=== PATIENT | male | born 1955 | race Caucasian/White ===

== ENCOUNTER 2017-03-06 15:38 | Observation (INO) | payer OTHER ==
--- NOTE | 2017-03-06 16:25 | EDPHY ---
H & P Stated Complaint: forgetfullness this am 9am on clinical trial for CLL Time Seen by Provider: 03/06/17 15:55 HPI/ROS: Chief Complaint: Altered mental status, speech changes HPI: 61-year-old male with a history of CLL who is currently on experimental medication that started in August of this year. Woke up this morning and seemed confused. This is not usual for his confusion is persisted to the day. He went to his son's apartment. He is having difficulty remembering events from this morning. He also had some difficulty word finding when conversing with his children this morning. No focal weakness. Does not have a history of similar episodes in the past. Has otherwise been in his normal state of health. He does take daily acyclovir and Bactrim for prophylaxis. No urinary urgency or frequency. No nausea or vomiting. No falls or head injury. He drinks rare alcohol and uses occasional marijuana but has not done either for several days. Family states he also has had very labile emotions today going from laughing to crying. ROS: 10 point Review of Systems is negative except as noted in the HPI. PMH: CLL, coronary artery disease status post CABG in 2011 Medications: Metoprolol, ramipril, Crestor, experimental [id number], experimental ibutoximab, acyclovir, Bactrim DS Social History: No smoking, no alcohol, no recreational drug use Family History: non-contributory Physical Exam: Gen: Awake, Alert, No Distress HEENT: Nose: no rhinorrhea Eyes: PERRLA, EOMI Mouth: Moist mucosa Neck: Supple, no JVD Chest: nontender, lungs clear to auscultation Heart: S1, S2 normal, no murmur Abd: Soft, non-tender, no guarding Back: no CVA tenderness, no midline tenderness Ext: no edema, non-tender Skin: no rash Neuro: CN II-XII intact, Sensation grossly intact, Strength 5/5 in bilateral upper and lower extremities - Personal History Current Tetanus/Diphtheria Vaccine: Yes - Medical/Surgical History Hx Asthma: No Hx Chronic Respiratory Disease: No Hx Diabetes: No Hx Cardiac Disease: No Hx Renal Disease: No Hx Cirrhosis: No Hx Alcoholism: No Hx HIV/AIDS: No Hx Splenectomy or Spleen Trauma: No Other PMH: CLL cardiac bypass - Social History Smoking Status: Never smoked Constitutional: Initial Vital Signs Temperature (C) 36.9 C 03/06/17 15:48 Heart Rate 76 03/06/17 15:48 Respiratory Rate 16 03/06/17 15:48 Blood Pressure 151/104 H 03/06/17 15:48 O2 Sat (%) 94 03/06/17 15:48 O2 Delivery Mode Room Air Allergies/Adverse Reactions: No Known Allergies Allergy (Unverified 03/06/17 15:43) Home Medications: Medication Instructions Recorded Acyclovir 03/06/17 Alfuzosin HCl 03/06/17 Aspirin 81mg (*) 03/06/17 Bactrim DS 03/06/17 Crestor 03/06/17 ECOTRIN 03/06/17 Metoprolol Succinate 03/06/17 Ramipril 03/06/17 [id number] 03/06/17 Medical Decision Making - Diagnostics EKG Interpretation: ECG time 5:10 p.m., sinus rhythm with a rate of 69, some right bundle branch and left anterior fascicular block. LVH. No acute ST or T-wave changes. Imaging Results: Imaging Impressions Head CT 03/06/17 16:16 Impression: 1. No acute intracranial process. 2. Minimal atrophy. Findings discussed with Emergency Department physician, Anthony Rosales MD at 03/06/2017 17:13. Imaging: Discussed imaging studies w/ call specialist Radiologist ED Course/Re-evaluation: CT scan is negative for acute process. Blood work is entirely normal. Patient is still mildly confused. Given his CLL and experimental medications he is on a think he needs to be admitted for further care. I have discussed with Dr. Emmanuel, hospitalist. Will admit to his service for further evaluation. - Data Points Laboratory Results: Laboratory Results 03/06/17 16:35 03/06/17 16:35 03/06/17 03/06/17 03/06/17 16:35 16:35 16:35 WBC 7.69 10^3/uL 10^3/uL (3.80-9.50) RBC 4.78 10^6/uL 10^6/uL (4.40-6.38) Hgb 15.0 g/dL g/dL (13.7-17.5) Hct 43.8 % % (40.0-51.0) MCV 91.6 fL fL (81.5-99.8) MCH 31.4 pg pg (27.9-34.1) MCHC 34.2 g/dL g/dL (32.4-36.7) RDW 14.1 % % (11.5-15.2) Plt Count 206 10^3/uL 10^3/uL (150-400) MPV 10.7 fL fL (8.7-11.7) Neut % (Auto) 78.4 % H % (39.3-74.2) Lymph % (Auto) 9.6 % L % (15.0-45.0) [place] % (Auto) 8.8 % % (4.5-13.0) Eos % (Auto) 2.1 % % (0.6-7.6) Baso % (Auto) 0.7 % % (0.3-1.7) Nucleat RBC Rel Count 0.0 % % (0.0-0.2) Absolute Neuts (auto) 6.03 10^3/uL 10^3/uL (1.70-6.50) Absolute Lymphs (auto) 0.74 10^3/uL L 10^3/uL (1.00-3.00) Absolute Monos (auto) 0.68 10^3/uL 10^3/uL (0.30-0.80) Absolute Eos (auto) 0.16 10^3/uL 10^3/uL (0.03-0.40) Absolute Basos (auto) 0.05 10^3/uL 10^3/uL (0.02-0.10) Absolute Nucleated RBC 0.00 10^3/uL 10^3/uL (0-0.01) Immature Gran % 0.4 % % (0.0-1.1) Immature Gran # 0.03 10^3/uL 10^3/uL (0.00-0.10) Sodium 142 mEq/L mEq/L (134-144) Potassium 3.8 mEq/L mEq/L (3.5-5.2) Chloride 106 mEq/L mEq/L (97-110) Carbon Dioxide 24 mEq/l mEq/l (22-31) Anion Gap 12 mEq/L mEq/L (8-16) BUN 18 mg/dL mg/dL (7-23) Creatinine 1.2 mg/dL mg/dL (0.7-1.3) Estimated GFR > 60 Glucose 92 mg/dL mg/dL (70-100) Calcium 9.4 mg/dL mg/dL (8.5-10.4) Total Bilirubin 0.9 mg/dL mg/dL (0.1-1.4) Conjugated Bilirubin 0.3 mg/dL mg/dL (0.0-0.5) Unconjugated Bilirubin 0.6 mg/dL mg/dL (0.0-1.1) AST 23 IU/L IU/L (17-59) ALT 46 IU/L IU/L (21-72) Alkaline Phosphatase 65 IU/L IU/L (38-126) Troponin I < 0.012 ng/mL ng/mL (0.000-0.034) Total Protein 6.6 g/dL g/dL (6.3-8.2) Albumin 4.5 g/dL g/dL (3.5-5.0) Lipase 78 IU/L IU/L (23-300) Urine Color Pending Urine Appearance Pending Urine pH Pending Ur Specific [place] Pending Urine Protein Pending Urine Ketones Pending Urine Blood Pending Urine Nitrate Pending Urine Bilirubin Pending Urine Urobilinogen Pending Ur Leukocyte Esterase Pending Urine Glucose Pending Departure - Departure Disposition: [facility] Inpatient Acute Clinical Impression: Confusion Condition: Fair Referrals: Kaitlynn Miranda MD [Primary Care Provider] - As per Instructions NIH Stroke Scale Date of Exam: 03/06/17 Time of Exam: 16:28 Level of Consciousness: Alert LOC Questions: Answers Both LOC Commands: Performs Both Correctly Best Gaze: Normal Visual: No Visual Loss Facial Palsy: Normal Motor Arm-Left: No Drift Motor Arm-Right: No Drift Motor Leg-Left: No Drift Motor Leg-Right: No Drift Limb Ataxis: Absent Sensory: Normal Best Language: No Aphasia Dysarthria: Normal Extinction and Inattention (Neglect): No Abnormality NIH Scale Score: 0
[2017-03-06 16:49] LABS: % IMMATURE GRANULYOCYTES 0.4 % (0.0-1.1); ABSOLUTE IMMATURE GRANULOCYTES 0.03 10^3/uL (0.00-0.10); ADD DIFF? NO; ADD MORPH? NO; ADD SCAN? NO; ATYPICAL LYMPHOCYTE FLAG 0 (0-99); FRAGMENT RBC FLAG 0 (0-99); HEMATOCRIT 43.8 % (40.0-51.0); LEFT SHIFT FLG 0 (0-99); LIPEMIA HEMOLYSIS FLAG 90 (0-99); MEAN CELL HEMOGLOBIN 31.4 pg (27.9-34.1); MEAN CELL HEMOGLOBIN CONCENTR. 34.2 g/dL (32.4-36.7); MEAN CELL VOLUME 91.6 fL (81.5-99.8); MEAN PLATELET VOLUME 10.7 fL (8.7-11.7); PLATELET CLUMPS FLAG 0 (0-99); PLATELET COUNT 206 10^3/uL (150-400); RED BLOOD CELL COUNT 4.78 10^6/uL (4.40-6.38); RED CELL DISTRIBUTION WIDTH 14.1 % (11.5-15.2)
[2017-03-06 17:02] LABS: ALANINE AMINOTRANSFERASE 46 IU/L (21-72); ALBUMIN 4.5 g/dL (3.5-5.0); ALKALINE PHOSPHATASE 65 IU/L (38-126); ANION GAP 12 mEq/L (8-16); ASPARTATE AMINOTRANSFERASE 23 IU/L (17-59); BILIRUBIN,TOTAL 0.9 mg/dL (0.1-1.4); BILIRUBIN-CONJUGATED 0.3 mg/dL (0.0-0.5); BILIRUBIN-UNCONJUGATED 0.6 mg/dL (0.0-1.1); CALCIUM 9.4 mg/dL (8.5-10.4); CARBON DIOXIDE 24 mEq/l (22-31); CHLORIDE 106 mEq/L (97-110); CREATININE 1.2 mg/dL (0.7-1.3); GLOMERULAR FILTRATION RATE > 60; GLUCOSE 92 mg/dL (70-100); POTASSIUM 3.8 mEq/L (3.5-5.2); SODIUM 142 mEq/L (134-144); TOTAL PROTEIN 6.6 g/dL (6.3-8.2)
--- NOTE | 2017-03-06 17:12 | CPEKG ---
Heart Rate: 69 RR Interval: 870 P-R Interval: 176 QRSD Interval: 148 QT Interval: 444 QTC Interval: 476 P [place]: 40 QRS [place]: -62 T Wave [place]: -17 EKG Severity - ABNORMAL ECG - EKG Impression: SINUS RHYTHM EKG Impression: RBBB AND LAFB EKG Impression: LEFT VENTRICULAR HYPERTROPHY Electronically Signed By: Anthony Rosales 06-Mar-2017 23:22:54
[2017-03-06 17:14] LABS: TROPONIN I < 0.012 ng/mL (0.000-0.034)
[2017-03-06] MEDS ORDERED: ACETAMINOPHEN 325 MG TAB PO PRN (18:19)
[2017-03-06] MEDS ORDERED: ONDANSETRON DISINTEGRATING 4 MG TAB PO PRN (18:19)
[2017-03-06] MEDS ORDERED: ONDANSETRON 4 MG/2 ML VIAL IVP PRN (18:19)
[2017-03-06] MEDS ORDERED: NS 1,000 ML IV SCH (18:30)
--- NOTE | 2017-03-06 19:05 | GHP ---
[f rep st] HISTORY AND PHYSICAL DATE OF ADMISSION: 03/06/2017 CHIEF COMPLAINT: Confusion. HISTORY OF PRESENT ILLNESS: This is a 61-year-old man with CLL on experimental medication by Dr. Catalina pop who presents with confusion. It started this morning, described as his memory is not as fabiano p as it has been. He is not remembering recent events very well at all. He had maybe an episode of aphasia with his daughter. He has difficulty recalling what he did throughout the day, though with some prompting he is able to. He denies any weakness or numbness. He did not have a facial droop at any point today either per his daughter. He has been on experimental medicine since August of this year. He was diagnosed with CLL about 5 years ago. This is his 1st set of treatment. He is t aking prophylactic acyclovir as well as Bactrim. PAST MEDICAL/SURGICAL HISTORY: 1. CLL on experimental ublituximab. 2. Coronary artery disease, status post CABG in 2011. MEDICATIONS: Please see medication reconciliation. ALLERGIES: No known drug allergies. SOCIAL HISTORY: Does not smoke. He does not drink. FAMILY HISTORY: His aunt had CLL. REVIEW OF SYSTEMS: A 10-point review of systems is conducted and is negative, except per HPI. PHYSICAL EXAM: VITAL SIGNS: Blood pressure is currently 184/105, heart rate 62, respiration rate 2 0, saturating 94% on room air. Temperature is 36.3. In general, the patient is a pleasant man who a ppears comfortable, in no acute distress. HEENT: Shows him to be normocephalic, atraumatic. CARDI OVASCULAR: Regular rate and rhythm. No murmurs, rubs, or gallops. PULMONARY: Lungs clear to ausc ultation bilaterally. ABDOMEN: Soft, nontender, nondistended. SKIN: No rash. : No [place]. ALVIN ROLOGIC EXAM: Shows him to be alert and oriented x3. Motor and sensation are intact in his upper an d lower extremities. Cranial nerves 2-12 are intact. PSYCHIATRIC EXAM: Shows normal mood and affect. LABS: CBC is unremarkable. Basic metabolic panel, LFTs and troponin are negative. Urinalysis is p ending. DATA: 1. I discussed this with Dr. Rosales and Jigar. Will get an MRI of his brain. 2. Head CT showed nothing acute. 3. ECG, which I personally viewed and interpreted, showed a right bundle branch block. This was pr esent previously. His block is slightly wider than previous, though there is no significant change. IMPRESSION AND PLAN: A 61-year-old man with chronic lymphocytic anemia on experimental chemotherapy presents with altered mental status. 1. Altered mental status: Differential includes due to chemotherapy, infection due to immunocompro mise, due to other medications versus metabolic, hypertensive, other inflammatory disease. I will p roceed with an MRI of his brain with and without contrast tonight to further evaluate. I discussed this with Dr. Kimball who agrees. If this does not provide an etiology and he continues to be conf used, I think a lumbar puncture tomorrow would be appropriate. 2. Coronary artery disease, status post CABG: We will continue his cardiac medications. 3. Hypertension, uncontrolled: We will give him his home medications and follow. If this does not improve his blood pressure, we will give him additional medicines. 4. Code status: He would like to be do not resuscitate. This is consistent with his previous wish es. /[id number]/MODL
[2017-03-06] MEDS ORDERED: GADOBUTROL 10 ML VIAL IVP ONE (19:37)
[2017-03-06 20:29] LABS: COLOR YELLOW; LEUKOCYTE ESTERASE,URINE NEGATIVE (NEGATIVE); NITRITE,URINE NEGATIVE (NEGATIVE)
[2017-03-06] MEDS ORDERED: ROSUVASTATIN CALCIUM 20 MG TAB PO SCH (21:00)
[2017-03-06] MEDS ORDERED: TAMSULOSIN HCL 0.4 MG CAP PO SCH (21:00)
[2017-03-06] MEDS: ACYCLOVIR 400 MG TAB PO SCH (21:28)
[2017-03-06] MEDS: METOPROLOL TARTRATE 25 MG TAB PO SCH (21:28)
[2017-03-06] MEDS ORDERED: RAMIPRIL 2.5 MG CAP PO SCH (22:00)
[2017-03-06] MEDS ORDERED: ALFUZOSIN 10 MG PO SCH (23:45)
[2017-03-07 04:46] LABS: % IMMATURE GRANULYOCYTES 0.3 % (0.0-1.1); ABSOLUTE IMMATURE GRANULOCYTES 0.02 10^3/uL (0.00-0.10); ADD DIFF? NO; ADD MORPH? NO; ADD SCAN? NO; ATYPICAL LYMPHOCYTE FLAG 0 (0-99); FRAGMENT RBC FLAG 0 (0-99); HEMATOCRIT 41.6 % (40.0-51.0); HEMOGLOBIN 14.1 g/dL (13.7-17.5); LEFT SHIFT FLG 0 (0-99); LIPEMIA HEMOLYSIS FLAG 90 (0-99); MEAN CELL HEMOGLOBIN 31.2 pg (27.9-34.1); MEAN CELL HEMOGLOBIN CONCENTR. 33.9 g/dL (32.4-36.7); MEAN PLATELET VOLUME 10.5 fL (8.7-11.7); PLATELET CLUMPS FLAG 10 (0-99); PLATELET COUNT 184 10^3/uL (150-400); RED BLOOD CELL COUNT 4.52 10^6/uL (4.40-6.38); RED CELL DISTRIBUTION WIDTH 14.1 % (11.5-15.2)
[2017-03-07 05:04] LABS: ALANINE AMINOTRANSFERASE 43 IU/L (21-72); ALBUMIN 3.9 g/dL (3.5-5.0); ALKALINE PHOSPHATASE 60 IU/L (38-126); ANION GAP 12 mEq/L (8-16); ASPARTATE AMINOTRANSFERASE 21 IU/L (17-59); BILIRUBIN,TOTAL 0.7 mg/dL (0.1-1.4); CALCIUM 9.1 mg/dL (8.5-10.4); CARBON DIOXIDE 24 mEq/l (22-31); CHLORIDE 107 mEq/L (97-110); GLOMERULAR FILTRATION RATE > 60; GLUCOSE 97 mg/dL (70-100); POTASSIUM 3.9 mEq/L (3.5-5.2); SODIUM 143 mEq/L (134-144); TOTAL PROTEIN 5.9 g/dL (6.3-8.2)
[2017-03-07 07:38] VITALS: O2SAT 95
[2017-03-07] MEDS: METOPROLOL TARTRATE 25 MG TAB PO SCH (08:31)
[2017-03-07] MEDS: ACYCLOVIR 400 MG TAB PO SCH (08:32)
[2017-03-07] MEDS ORDERED: SULFAMETHOX/TMP 800/160 MG 1 TAB PO SCH (09:00)
[2017-03-07] MEDS ORDERED: RAMIPRIL 2.5 MG CAP PO SCH ×2 (09:00→21:00)
[2017-03-07] MEDS ORDERED: ASPIRIN EC 81 MG TAB PO SCH (09:00)
[2017-03-07 11:27] VITALS: RESP 14
--- NOTE | 2017-03-07 13:16 | GCON ---
[f rep st] CONSULTATION NEW PATIENT CONSULT CONSULTING PHYSICIAN: Fabian Emmanuel M.D. REASON FOR CONSULTATION: Patient known to [facility], patient of Dr. Colon's on clinical trial for CLL, presented with altered mental status. HISTORY OF PRESENT ILLNESS: The patient is a 61-year-old gentleman with a history of CLL. He was diagnosed with CLL in 2011. He was diagnosed at the time with coronary disease and was undergoing preoperative evaluation for bypass surgery. He was noted to have a white blood cell count around 65,000. In any event, he underwent his CABG uneventfully but white count continued to rise. He developed progressive axillary and cervical adenopathy. The white count rhys to 180,000, but there was no evidence of anemia or thrombocytopenia and he continued to feel well. It was stable for some time. In August 2015 a bone marrow biopsy was performed by his painter hand which showed 80% involvement with CLL. 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 CD38 expression was negative. ZAP-70 and IgE HB mutation status were not checked. He had a CT scan which showed extensive adenopathy with axillary node on the left measuring 3.9 cm and on the right measuring 4.4 cm. There were also enlarged nodes in the abdomen with elaine hepatis node measuring 6.4 cm, as well as a number of other nodes in the 3-5 cm range. IGHV was unmutated in our lab in June of 2016. In August 2016 he had progressive fatigue, lymphocytosis and anemia. He was enrolled on our [facility] Clinical Trial USON 12582 and was randomized to ublituximab and TGR-1202. His counts normalized within 2 weeks of starting therapy. He recently completed cycle 6 day 1 of ublituximab and TGR-1202 on 05/2017. I will note his mid-treatment scan, status post cycle 3, showed very favorable response. He has continued to feel well and tolerated therapy very well. He continues on acyclovir and Bactrim prophylaxis. M Yesterday he had acute onset of confusion per daughter and son. He states and they state he had difficulty with word finding and was very emotional and very foggy-headed. He had no weakness in his extremities. He denies fevers. He had an MRI overnight after CT head was done, showing no definite acute intracranial findings. He had a tiny left cerebellar calcification hemosiderin deposit or less likely hemorrhage but no suspicious finding in the region of the recent CT. There was no mention of any white matter changes. This morning or this afternoon he is doing much better. Alert and oriented x3 and able to answer my questions appropriately. He reports he is still having issues with dexterity in using his fingers, but otherwise moving all extremities. Has good strength and seems to remember several events from yesterday. PAST MEDICAL HISTORY: CAD status post CABG, history of hypertension and hypercholesterolemia. He has been taking his outpatient medications. FAMILY HISTORY: Noncontributory. SOCIAL HISTORY: Nonsmoker. Accompanied by daughter and son today. MEDICATIONS: Have been reviewed in EMR and documented. ALLERGIES: He has no known drug allergies. REVIEW OF SYSTEMS: As per HPI. Otherwise negative. He does deny any palpitations or arrhythmias yesterday. He does have a history of atrial fibrillation of note. PHYSICAL EXAMINATION: VITAL SIGNS: Show a blood pressure of 154/80, pulse of 104, heart rate of 53, O2 saturation 95% on room air, temperature is 36.4. GENERAL: He is a middle-aged man, looks his stated age, not in acute distress. HEENT: Anicteric. Pupils equal, reactive to light and accommodation. Oropharynx clear. Tongue midline. HEART: Regular rate and rhythm, actually bradycardic. LUNGS: Clear to auscultation bilaterally. ABDOMEN: Soft, nontender. LOWER EXTREMITIES: Show no significant edema. NEUROLOGIC: He has 5/5 strength throughout. He has a little difficulty with [id number]. LABORATORY: Including CBC and CMP are essentially normal. Imaging as described above. ASSESSMENT AND PLAN: A 61-year-old gentleman with CLL, currently on [facility] [place] [id number] with ublituximab and TGR-1202 who presented with altered mental status. 1. Altered mental status, which has improved since admission. TGR-1202 is an oral PI3 kinase, delta inhibitor somewhat similar to idelalisib. Based on the midtreatment scans he is having an excellent response and his CBC is now completely within normal limits. He has been on this drug for some time now and never had any untoward side effects. He has had some issues with rash related to Bactrim, but has done well with acyclovir and Bactrim prophylaxis overall. There is a very low risk of confusion with this drug based on our knowledge of it, but I do not think his acute presentation of altered mental status is related. He has no evidence of infection at this time. I do note the calcifications seen. A tiny calcification seen in the left cerebellum, but I do not feel this is related to his symptoms. Personally I feel like clinical presentation is consistent with a transient ischemic attack. He has a history of cardiovascular disease and his symptoms fit this clinical diagnosis. Discussed with Dr. Finley the possibility of getting a neurology consult or discussing more aggressive antiplatelet therapy. I would be comfortable going up to aspirin 325 daily, need to check increased bleeding risk with PI3 kinase and I am hesitant to recommend Plavix or other anti-platelet before I can review trial drug. 2. CLL seems to be having an excellent response. Will likely be getting repeat scans here soon. I think I favor continuing study drug in the hospital to see if he has any acute events while he is under monitoring. 3. High blood pressure. He maintains on his current antihypertensive medications and his blood pressure has been high over the last few days, as high a systolic of 170. We will continue to follow the patient in the hospital. I will follow up on drug contraindications with TGR-1202. /[id number]/MODL MTDD
[2017-03-07 15:06] VITALS: BP 148/90; PULSE 69; TEMP 98
[2017-03-07 15:38] LABS: CHOLESTEROL 171 mg/dL (140-220); CHOLESTEROL/HDL RATIO 3.89 RATIO (1.00-4.97); HIGH DENSITY LIPOPROTEIN 44 mg/dL (40-65); LDL/HDL RATIO 1.95 RATIO (1.00-3.64); LOW DENSITY LIPOPROTEIN 86 mg/dL (80-100); NON-HIGH DENSITY LIPOPROTEIN 127 mg/dL (90-129); TRIGLYCERIDE 208 mg/dL (40-150); VERY LOW DENSITY LIPOPROTEINS 41 mg/dL (8-25)
--- NOTE | 2017-03-07 16:52 | HOSPPROG ---
Hospitalist Progress Note Assessment/Plan: DIAGNOSES: -acute encephalopathy, resolved, uncertain etiology -CLL Overall my impression is that this is most likely an acute encephalopathy and not an ischemic or TIA type syndrome. My reasoning for this impression is that his symptoms really seem like a global encephalopathy with memory loss and confusion which would not be expected with focal lesions such as stroke or TIA. Also he had symptoms that went on for many hours yesterday and had a normal MRI. Where this actual cerebral vascular incident lasting that long I would expect to see something on MRI most likely. 1 possibility is that the patient again used some marijuana substance on the morning at the onset of his symptoms and did not want to admit this to family members at that time or during the presence of my interview with him. He does admit to having used marijuana 6 days prior and this was with family. At this time there is no specific causative feature found otherwise and I agree with Dr. Kimball that his protocol medicine from Dr. Darlene akers is not likely causing this syndrome. Either way the symptoms have resolved and my expectation is that he will continue to do well. PLANS: On the unlikely chance that this actually was a TIA, I have ordered a Doppler ultrasound just to be certain there is no significant stenoses and ordered lipid panel as well. As there may be some increased bleeding risk with his study medicine and my suspicion for TIA is low I would not increase his anti-platelet therapy at this time. > 40 minutes of bedside time in discussion as above and below with pt and family SUBJECTIVE: I have reviewed the course of the patient's symptoms in detail at length with the patient, his son, and his daughter. The story that I get is that he has prompt most prominent symptom was memory loss and confusion. He was unable to sort out what he was doing or what he was supposed to be doing, where he was. This is very distinct from a word-finding or expressive aphasia problem, although he did have at certain times trouble coming up with specific words. However the overall picture that I get from him and his family is 1 of a global cognitive dysfunction as opposed to a focal problem to suggest TIA or stroke. On review there was no head injury or anything that would cause concussion, no fever symptoms, no ingestion of alcohol, no loss of sleep, no dehydration, nothing to suggest a heat stroke, and he has never had a syndrome like this before. Notably the patient states that he did use amenable marijuana with his family 6 days ago and had some symptoms of confusion around time as well as some dizziness during that episode but those symptoms all resolved after few hours as expected and he felt well after that. His son and daughter were present during this interview so I did not push him harder for questioning about whether he might have had any marijuana or other drugs as his symptoms were starting, but during this conversation he did volunteer that he had not taken anything for the last 6 days. He says he rarely uses any marijuana because he does not like the way it makes him feel and does not use any other street drugs. OBJECTIVE Vitals reviewed: Some mild to moderate hypertension otherwise stable without fever air sampling and monitoring: On my review shows all normal sinus rhythm Exam: alert oriented with no current memory issues or word-finding issues; stands without any difficulty and demonstrates no balance abnormalities, no focal weakness, speech and language functions are normal skin warm dry color ok resps not labored lungs clear BSs heart regular abd soft nondistended nontender, bowel sounds present limbs warm, no edema iv site ok I reviewed his MRI images and I do not find anything concerning for possibility of stroke or lesion that might cause seizure Objective: Vital Signs Temp Pulse Resp BP Pulse Ox 36.7 C 69 14 148/90 H 95 03/07/17 15:05 03/07/17 15:05 03/07/17 15:05 03/07/17 15:05 03/07/17 15:05 Laboratory Results 03/07/17 04:12 03/07/17 04:12 ICD10 Worksheet Patient Problems: Problems Problem Status Onset Confusion Acute
--- NOTE | 2017-03-07 17:31 | PDDCSUM ---
Discharge Summary Discharge Summary: DISCHARGE DIAGNOSES: -Acute encephalopathy of uncertain etiology, resolved -CLL CONSULTANTS: Dr. Jayne Kimball PROCEDURES: MRI of brainWith no concerning abnormalities CT of head normal Carotid Doppler ultrasound with no demonstration of cerebral vascular abnormalities of significance Cardiac monitoring with no sign of atrial fibrillation HOSPITAL COURSE SUMMARY: This patient presented to the hospital after developing confusion and memory loss on the day of his admission. This went on for several hours and gradually improved through the day. There were no clinical findings to suggest a specific etiology for this. The patient had an MRI of the brain while he was still having symptoms and at least several hours into the clinical syndrome. This MRI showed no evidence of ischemia or other lesions that would cause these symptoms. There is a question of a tiny calcification which was not seen on head CT and this was of questionable significance but certainly did not seem related to his symptoms. the patient's symptoms resolved here in the hospital. He did have some hypertension that for least 1 brief period was fairly high at 184/105. Otherwise he had mild hypertension throughout his hospital stay despite chronic metoprolol use. It is possible he could have had some more severe hypertension that caused his presenting symptoms but there were no other findings and he otherwise remained stable. At this point he is stable for discharge to home. In terms of the cause of this syndrome 1 concern would be whether he had surreptitiously use some marijuana. It is known that he did use marijuana 6 days previous to this admission and is possible he may have used again and not wanted to admit this in front of family who were with him during his symptoms and during his hospital stay. Another possibility would be a hypertension induced encephalopathy. There is question of whether this could be TIA. However the patient syndrome was really clinically 1 of a global neurologic deficit as opposed to a focal neurologic deficit and it is unlikely particularly with a normal MRI after several hours of symptoms that that is what this was. \ At this point the patient is stable for discharge to home. It is elected to continue on his aspirin and statin medications without any further Diagnostic study and have him avoid marijuana and to follow up closely with his primary care doctor and with Dr. Colon. In terms of his high blood pressure is high have added some Norvasc but will not make other changes in medication. PENDING TEST RESULTS: None MEDICATION CHANGES: addition of Norvasc 5 mg daily FOLLOW-UP PLAN: With Dr. Colon in 7-10 days With primary care in 1-2 weeks Greater than 35 minutes bedside and care coordination time today
[2017-03-07] MEDS ORDERED: ALFUZOSIN 10 MG PO SCH (21:00)
== END 2017-03-07 17:57 | disposition home or self-care (01) ==
LOC: INTOOBSV 17:38 → F3N 18:27
PROVIDERS: ADMIT Student in an Organized Health Care Education/Training Program; ATTEND Student in an Organized Health Care Education/Training Program
DX: G93.40 Encephalopathy, unspecified (principal); C81.11 Nodular sclerosis Hodgkin lymphoma, lymph nodes of head, face, and neck
CPT/HCPCS: 70450; 70553; 93005; 93880; 97161; 97165; 99285; G0378; A9585